=== PATIENT | female | born 1965 | race Caucasian/White ===

== ENCOUNTER 2020-02-14 02:17 | Emergency (ER) | payer BC, SELFPAY ==
[2020-02-14 02:17] VITALS: BP 160/78; PULSE 90; RESP 18; TEMP 36.4; O2SAT 95; BMI 27.4
--- NOTE | 2020-02-14 02:56 | W.ED.CHESTPA ---
Documented by User: RADHA Elmore 02/14/20 17:53 HPI - Chest Pain General: Chief Complaint: Recheck/Abnormal Lab/Rx Stated Complaint: HYPERTENSION Time Seen by Provider: 02/14/20 02:20 Source: patient Limitations: no limitations History of Present Illness: HPI narrative: Patient is a 54-year-old female who presents to ED today with several complaints. She tells me that she is concerned about the symptoms she is having and whether they could be indicative of a heart blockage . She tells me she has been having pain in her chest over the past month. She describes the pain as substernal and constant in nature. She does tell me she has a history of acid reflux and does not know if the pain could be related to that. She is complaining of cold sweats at night. She states she has pain and tingling intermittently in her left arm however has had a carpal tunnel surgery so is not sure if that is related. She also takes gabapentin and when asked why she states because of the numbness and tingling in her arm. Reports some pain to left shoulder but also states she has recently lifted something heavy and doesn't know if she pulled something. She tells me she has been having palpitations and feelings of rapid heartbeats. Patient has been seen by her PCP Gail Michele for this and she is scheduled for a stress test on March 11. Patient tells me she is also been having problems with hypertension. She does not seem to find a correlation with worsening symptoms with exertion. She is not having any shortness of breath with lying down. She has not noticed any swelling to her lower extremities. Denies fever/chills. Denies a cough. MD complaint: chest pain Onset (ago): month(s) Timing of current episode: constant Prior episodes: Yes Onset: during rest Pain location: substernal Pain radiation: left arm Severity: mild Relieving factors: nothing Exacerbating factors: nothing Associated symptoms: Reports palpitations; Deny abdominal pain, dyspnea, fever(s), nausea, syncope or vomiting Review of Systems Const: Denies: fever, chills, body aches, change in appetite, change in weight or fatigue Eyes: Denies: change in vision, blurry vision, blind spots or photophobia ENMT: Denies: throat pain, enlarged tonsils or painful swallowing Card: Reports: chest pain and palpitations; Denies: irregular heart rhythm, edema, swelling of feet/ankles, lightheadedness, syncope, pre-syncope, shortness of breath on exertion, shortness of breath when lying down, leg pain with exertion or bluish discoloration of hands/feet Resp: Denies: shortness of breath, productive cough, non-productive cough, pain on inspiration, change in phlegm color, coughing up blood or chest congestion GI: Denies: abdominal pain, nausea or vomiting : Denies: flank pain, difficulty urinating, painful urination, urinary frequency, urinary urgency or urinary hesitancy Musc: Denies: neck pain or back pain Skin/Breast: Denies: rash Neuro: Reports: numbness in extremities (intermittent; L arm-seems to be chronic) PFSH ED PFSH: Medical History (Updated 02/14/20 @ 03:57 by Hussein Chaudhary DO) Carpal tunnel syndrome Social History Smoking and tobacco status: never smoked Physical Exam Const: COMMON NORMALS: no apparent distress, average body habitus, oriented x3, no limitations, healthy appearing, alert and well nourished HENMT: COMMON NORMALS: normocephalic and head/scalp atraumatic HEAD & SCALP: normocephalic and atraumatic Neck/C-Spine: COMMON NORMALS: full ROM and no lymphadenopathy Chest: COMMONS NORMALS: inspection of chest normal and palpation of chest normal Resp: COMMON NORMALS: normal respiratory effort and clear to auscultation bilaterally AUSCULTATION: clear to auscultation bilaterally Cardio: COMMON NORMALS: regular rate and regular rhythm RATE: regular rate RHYTHM: regular rhythm GI: COMMON NORMALS: normal to inspection, nondistended, normoactive bowel sounds, soft to palpation, non-tender, no hepatosplenomegaly and no masses PALPATION: Yes soft and Yes no hepatosplenomegaly : COMMON NORMALS: Yes no CVA tenderness BLADDER/KIDNEY EXAM: Yes no CVA tenderness Back/Pelvis: COMMON NORMALS: no CVA tenderness Neuro: COMMON NORMALS: oriented x3 SENSORIUM/ORIENTATION: Yes alert Skin: COMMON NORMALS: no rashes or lesions noted GENERAL SKIN EXAM: no rashes or lesions noted Course Vital Signs: Vital signs: Vital Signs Temperature 98.3 F 02/14/20 04:33 Pulse Rate 84 02/14/20 04:33 Respiratory Rate 16 02/14/20 04:33 Blood Pressure 120/67 02/14/20 04:33 Pulse Oximetry 98 02/14/20 04:33 MDM - Chest Pain Lab Data: Labs: Lab Results 02/14/20 02/14/20 02/14/20 Range/Units 03:10 03:15 03:15 WBC 6.5 (4.0-10.0) 10^3/ uL RBC 4.46 (4.1-5.3) 10^6/u L Hgb 13.8 (11.5-15.3) g/dL Hct 42.0 (37.0-47.0) % MCV 94.2 (81-99) fL MCH 30.9 (28.0-34.0) pg MCHC 32.9 (30.0-36.0) g/dL RDW 12.6 (12.1-15.1) % Plt Count 274 (130-400) 10^3/c mm MPV 9.9 (7.4-10.4) fL Neut % (Auto) 53.6 % Lymph % (Auto) 36.7 % [place] % (Auto) 5.8 % Eos % (Auto) 3.2 % Baso % (Auto) 0.5 % Neut # (Auto) 3.5 (1.8-7.7) 10^3/u L Lymph # (Auto) 2.4 (0.8-4.8) 10^3/u L [place] # (Auto) 0.4 (0.2-0.9) 10^3/u L Eos # (Auto) 0.2 (0.0-0.8) 10^3/u L Baso # (Auto) 0.0 (0.0-0.1) 10^3/u L Nucleated RBC % (a uto) 0 % Nucleated RBCs # 0.0 /100WBC Sodium 143 (136-145) mmol/L Potassium 4.0 (3.5-5.1) mmol/L Chloride 102 (98-107) mmol/L Carbon Dioxide 32 H (22-29) mmol/L Anion Gap 13.0 (5-19) BUN 14 (6-20) mg/dL Creatinine 0.6 (0.5-0.9) mg/dL GFR Calculation 105.0 (90-130) mL/min Glucose 98 (65-115) mg/dL Calculated Osmolal ity 292 (285-295) mOsm/k g Calcium 9.8 (8.5-10.5) mg/dL Total Bilirubin 0.2 (0.15-1.2) mg/dL AST 18 (0-32) U/L ALT 19 (0-33) U/L Alkaline Phosphata se 38 (35-105) IU/L Troponin T Baselin e (0-10) ng/mL Total Protein 7.5 (6.6-8.7) g/dL Albumin 4.1 (3.5-5.2) g/dL Globulin 3.4 (1.3-4.6) g/dL TSH 9.18 H (0.27-4.20) uIU/ mL Urine Color Yellow (Yellow) Urine Appearance Clear (CLEAR) Urine pH 7 (5-7) Ur Specific Gravit y 1.010 (1.005-1.030) Urine Protein Neg (Negative) Urine Glucose (UA) Norm (Normal) Urine Ketones Negative (Negative) Urine Blood Neg (Negative) Urine Nitrate Negative (Negative) Urine Bilirubin Neg (NEGATIVE) Urine Urobilinogen Norm (Negative) mg/dL Ur Leukocyte Kemi ase Negative (Negative) 02/14/20 Range/Units 03:15 WBC (4.0-10.0) 10^3/ uL RBC (4.1-5.3) 10^6/u L Hgb (11.5-15.3) g/dL Hct (37.0-47.0) % MCV (81-99) fL MCH (28.0-34.0) pg MCHC (30.0-36.0) g/dL RDW (12.1-15.1) % Plt Count (130-400) 10^3/c mm MPV (7.4-10.4) fL Neut % (Auto) % Lymph % (Auto) % [place] % (Auto) % Eos % (Auto) % Baso % (Auto) % Neut # (Auto) (1.8-7.7) 10^3/u L Lymph # (Auto) (0.8-4.8) 10^3/u L [place] # (Auto) (0.2-0.9) 10^3/u L Eos # (Auto) (0.0-0.8) 10^3/u L Baso # (Auto) (0.0-0.1) 10^3/u L Nucleated RBC % (a uto) % Nucleated RBCs # /100WBC Sodium (136-145) mmol/L Potassium (3.5-5.1) mmol/L Chloride (98-107) mmol/L Carbon Dioxide (22-29) mmol/L Anion Gap (5-19) BUN (6-20) mg/dL Creatinine (0.5-0.9) mg/dL GFR Calculation (90-130) mL/min Glucose (65-115) mg/dL Calculated Osmolal ity (285-295) mOsm/k g Calcium (8.5-10.5) mg/dL Total Bilirubin (0.15-1.2) mg/dL AST (0-32) U/L ALT (0-33) U/L Alkaline Phosphata se (35-105) IU/L Troponin T Baselin e 8 (0-10) ng/mL Total Protein (6.6-8.7) g/dL Albumin (3.5-5.2) g/dL Globulin (1.3-4.6) g/dL TSH (0.27-4.20) uIU/ mL Urine Color (Yellow) Urine Appearance (CLEAR) Urine pH (5-7) Ur Specific Gravit y (1.005-1.030) Urine Protein (Negative) Urine Glucose (UA) (Normal) Urine Ketones (Negative) Urine Blood (Negative) Urine Nitrate (Negative) Urine Bilirubin (NEGATIVE) Urine Urobilinogen (Negative) mg/dL Ur Leukocyte Kemi ase (Negative) Discharge Plan Discharge Patient Disposition: Home, Self-Care Clinical Impression: Atypical chest pain Condition: Stable Prescriptions: No Action Aspirin Low Dose 81 mg Tablet,Delayed Release (Dr/Ec) 81 mg PO DAILY RF: 0 levothyroxine 88 mcg Tablet 88 mcg PO DAILY RF: 0 trazodone 150 mg Tablet 150 mg PO DAILY RF: 0 gabapentin 300 mg Capsule 300 mg PO BID RF: 0 Discharge Diet: Usual diet Discharge Activity: Limit activity as instructed Activity Restrictions/Additional Instructions: Keep stress test as scheduled. Discharge Date/Time: 02/14/20 04:45 Sign Out Sign Out Data: Patient Sign Out occurred on 02/14/20 at 03:21. Patient's care was discussed, and care was transferred from to Hussein Chaudhary DO. Coding Level of Care Code ED Landscape Architecture Teacher for Chg Fwd Exam Comprehensive Documented by User: Hussein Chaudhary DO 02/14/20 21:10 HPI - Chest Pain General: Chief Complaint: Recheck/Abnormal Lab/Rx Stated Complaint: HYPERTENSION Time Seen by Provider: 02/14/20 02:20 PFS ED PFSH: Medical History (Updated 02/14/20 @ 03:57 by Hussein Chaudhary DO) Carpal tunnel syndrome Social History Smoking and tobacco status: never smoked Course ED course: Patient has negative troponin will go and discharge home. She has had this for several weeks and she has a stress test scheduled are ready recommend that she keep that stress test appointment as planned. Aspirin daily return to the ER if has worsening or changes symptoms Vital Signs: Vital signs: Vital Signs Temperature 98.3 F 02/14/20 04:33 Pulse Rate 84 02/14/20 04:33 Respiratory Rate 16 02/14/20 04:33 Blood Pressure 120/67 02/14/20 04:33 Pulse Oximetry 98 02/14/20 04:33 MDM - Chest Pain Lab Data: Labs: Lab Results 02/14/20 02/14/20 02/14/20 Range/Units 03:10 03:15 03:15 WBC 6.5 (4.0-10.0) 10^3/ uL RBC 4.46 (4.1-5.3) 10^6/u L Hgb 13.8 (11.5-15.3) g/dL Hct 42.0 (37.0-47.0) % MCV 94.2 (81-99) fL MCH 30.9 (28.0-34.0) pg MCHC 32.9 (30.0-36.0) g/dL RDW 12.6 (12.1-15.1) % Plt Count 274 (130-400) 10^3/c mm MPV 9.9 (7.4-10.4) fL Neut % (Auto) 53.6 % Lymph % (Auto) 36.7 % [place] % (Auto) 5.8 % Eos % (Auto) 3.2 % Baso % (Auto) 0.5 % Neut # (Auto) 3.5 (1.8-7.7) 10^3/u L Lymph # (Auto) 2.4 (0.8-4.8) 10^3/u L [place] # (Auto) 0.4 (0.2-0.9) 10^3/u L Eos # (Auto) 0.2 (0.0-0.8) 10^3/u L Baso # (Auto) 0.0 (0.0-0.1) 10^3/u L Nucleated RBC % (a uto) 0 % Nucleated RBCs # 0.0 /100WBC Sodium 143 (136-145) mmol/L Potassium 4.0 (3.5-5.1) mmol/L Chloride 102 (98-107) mmol/L Carbon Dioxide 32 H (22-29) mmol/L Anion Gap 13.0 (5-19) BUN 14 (6-20) mg/dL Creatinine 0.6 (0.5-0.9) mg/dL GFR Calculation 105.0 (90-130) mL/min Glucose 98 (65-115) mg/dL Calculated Osmolal ity 292 (285-295) mOsm/k g Calcium 9.8 (8.5-10.5) mg/dL Total Bilirubin 0.2 (0.15-1.2) mg/dL AST 18 (0-32) U/L ALT 19 (0-33) U/L Alkaline Phosphata se 38 (35-105) IU/L Troponin T Baselin e (0-10) ng/mL Total Protein 7.5 (6.6-8.7) g/dL Albumin 4.1 (3.5-5.2) g/dL Globulin 3.4 (1.3-4.6) g/dL TSH 9.18 H (0.27-4.20) uIU/ mL Urine Color Yellow (Yellow) Urine Appearance Clear (CLEAR) Urine pH 7 (5-7) Ur Specific Gravit y 1.010 (1.005-1.030) Urine Protein Neg (Negative) Urine Glucose (UA) Norm (Normal) Urine Ketones Negative (Negative) Urine Blood Neg (Negative) Urine Nitrate Negative (Negative) Urine Bilirubin Neg (NEGATIVE) Urine Urobilinogen Norm (Negative) mg/dL Ur Leukocyte Kemi ase Negative (Negative) 02/14/20 Range/Units 03:15 WBC (4.0-10.0) 10^3/ uL RBC (4.1-5.3) 10^6/u L Hgb (11.5-15.3) g/dL Hct (37.0-47.0) % MCV (81-99) fL MCH (28.0-34.0) pg MCHC (30.0-36.0) g/dL RDW (12.1-15.1) % Plt Count (130-400) 10^3/c mm MPV (7.4-10.4) fL Neut % (Auto) % Lymph % (Auto) % [place] % (Auto) % Eos % (Auto) % Baso % (Auto) % Neut # (Auto) (1.8-7.7) 10^3/u L Lymph # (Auto) (0.8-4.8) 10^3/u L [place] # (Auto) (0.2-0.9) 10^3/u L Eos # (Auto) (0.0-0.8) 10^3/u L Baso # (Auto) (0.0-0.1) 10^3/u L Nucleated RBC % (a uto) % Nucleated RBCs # /100WBC Sodium (136-145) mmol/L Potassium (3.5-5.1) mmol/L Chloride (98-107) mmol/L Carbon Dioxide (22-29) mmol/L Anion Gap (5-19) BUN (6-20) mg/dL Creatinine (0.5-0.9) mg/dL GFR Calculation (90-130) mL/min Glucose (65-115) mg/dL Calculated Osmolal ity (285-295) mOsm/k g Calcium (8.5-10.5) mg/dL Total Bilirubin (0.15-1.2) mg/dL AST (0-32) U/L ALT (0-33) U/L Alkaline Phosphata se (35-105) IU/L Troponin T Baselin e 8 (0-10) ng/mL Total Protein (6.6-8.7) g/dL Albumin (3.5-5.2) g/dL Globulin (1.3-4.6) g/dL TSH (0.27-4.20) uIU/ mL Urine Color (Yellow) Urine Appearance (CLEAR) Urine pH (5-7) Ur Specific Gravit y (1.005-1.030) Urine Protein (Negative) Urine Glucose (UA) (Normal) Urine Ketones (Negative) Urine Blood (Negative) Urine Nitrate (Negative) Urine Bilirubin (NEGATIVE) Urine Urobilinogen (Negative) mg/dL Ur Leukocyte Kemi ase (Negative) Discharge Plan Discharge Patient Disposition: Home, Self-Care Clinical Impression: Atypical chest pain Condition: Stable Prescriptions: No Action Aspirin Low Dose 81 mg Tablet,Delayed Release (Dr/Ec) 81 mg PO DAILY RF: 0 levothyroxine 88 mcg Tablet 88 mcg PO DAILY RF: 0 trazodone 150 mg Tablet 150 mg PO DAILY RF: 0 gabapentin 300 mg Capsule 300 mg PO BID RF: 0 Discharge Diet: Usual diet Discharge Activity: Limit activity as instructed Activity Restrictions/Additional Instructions: Keep stress test as scheduled. Discharge Date/Time: 02/14/20 04:45 Sign Out Sign Out Data: Patient Sign Out occurred on 02/14/20 at 03:21. Patient's care was discussed, and care was transferred from to Hussein Chaudhary DO. Coding Level of Care Code ED Landscape Architecture Teacher for Everg Fwd Exam Comprehensive
--- NOTE | 2020-02-14 02:58 | XR_ITS ---
WS: [id number] XR chest 1V portable [id number] REASON FOR EXAM: cough/congestion FINDINGS: The heart and mediastinal interfaces normal. The lung mo[place] are well aerated much improved since previous exam January 24, 2012. There is no pneumonia, pleural effusion, pulmonary edema, pneumothorax, or mass effect. The hilum and apices normal. No osseous abnormalities. XR/XR chest 1V portable [id number] IMPRESSION: Negative chest for acute findings.
[2020-02-14 03:21] LABS: Add Urine Microscopic? NO
[2020-02-14 03:29] LABS: Bilirubin Urine Neg (NEGATIVE); Blood Urine Neg (Negative); Glucose Urine UA Norm (Normal); Ketones Urine Negative (Negative); Leukocyte Esterase Urine Negative (Negative); Nitrate Urine Negative (Negative); Protein Urine Neg (Negative); Urine Appearance Clear (CLEAR); Urine Color Yellow (Yellow); Urobilinogen Urine Norm (Negative); pH Urine 7 (5-7)
[2020-02-14 03:41] LABS: Troponin(5th) Baseline 8 ng/mL (0-10)
[2020-02-14 03:44] LABS: Basophils % 0.5 %; Eosinophils # 0.2 10^3/uL (0.0-0.8); Eosinophils % 3.2 %; Hemoglobin 13.8 g/dL (11.5-15.3); Lymphocytes # 2.4 10^3/uL (0.8-4.8); Lymphocytes % 36.7 %; Mean Corpuscular HGB Conc 32.9 g/dL (30.0-36.0); Mean Corpuscular Hemoglobin 30.9 pg (28.0-34.0); Mean Corpuscular Volume 94.2 fL (81-99); Mean Platelet Volume 9.9 fL (7.4-10.4); Monocytes # 0.4 10^3/uL (0.2-0.9); Monocytes % 5.8 %; Neutrophils # 3.5 10^3/uL (1.8-7.7); Neutrophils % 53.6 %; Nucleated Red Blood Cells % 0 %; Platelet Count 274 10^3/cmm (130-400); Red Blood Count 4.46 10^6/uL (4.1-5.3); Red Cell Distribution Width 12.6 % (12.1-15.1); White Blood Count 6.5 10^3/uL (4.0-10.0)
[2020-02-14 03:51] LABS: Alanine Aminotransferase 19 U/L (0-33); Albumin Level 4.1 g/dL (3.5-5.2); Alkaline Phosphatase 38 IU/L (35-105); Aspartate Amino Transferase 18 U/L (0-32); Blood Urea Nitrogen 14 mg/dL (6-20); Calcium 9.8 mg/dL (8.5-10.5); Carbon Dioxide 32 mmol/L (22-29); Chloride 102 mmol/L (98-107); Globulin 3.4 g/dL (1.3-4.6); Glucose 98 mg/dL (65-115); Osmolality Calculated 292 mOsm/kg (285-295); Sodium 143 mmol/L (136-145); Thyroid Stimulating Hormone 9.18 uIU/mL (0.27-4.20); Total Bilirubin 0.2 mg/dL (0.15-1.2); Total Protein 7.5 g/dL (6.6-8.7)
[2020-02-14 04:33] VITALS: BP 120/67; PULSE 84; RESP 16; TEMP 36.8; O2SAT 98
--- NOTE | 2020-02-14 08:59 | ECG_ITS ---
Measurements Intervals [place] Rate: 78 P: 56 IA: 174 QRS: 5 QRSD: 98 T: 40 QT: 373 QTc: 425 SINUS RHYTHM SEPTAL MYOCARDIAL INFARCTION , OF INDETERMINATE AGE [40+ ms Q WAVE IN V1/V2] No previous ECG available for comparison Electronically Signed On 02-15-2020 12:48:46 CDT by Wali Pickering [email or web address]
== END 2020-02-14 04:45 | disposition home or self-care (01) ==
PROVIDERS: Physician Assistant; Emergency Provider Family Medicine
DX: R07.89 Other chest pain (principal)
CPT/HCPCS: 12345; 36415; 71045; 80053; 81003; 84443; 84484; 85025; 93005; 93010; 99282; 99283; A9270

== ENCOUNTER 2020-11-06 09:54 | Outpatient (CLI) | payer BC, SELFPAY ==
--- NOTE | 2020-11-06 10:01 | MM_ITS ---
WS: [id number] BILATERAL DIGITAL SCREENING MAMMOGRAPHY WITH CAD CLINICAL INFORMATION: SCREENING HISTORY: Screening mammogram. No current complaints. COMPARISON: October 09, 2019 TECHNIQUE: Bilateral CC and MLO views. FINDINGS: The breasts are composed of heterogeneous fibroglandular density tissue, which can limit the detectio n of small underlying mass lesions. No suspicious mass, asymmetry, calcifications, or architectural d istortion. No evidence of malignancy. MM/[place] [id number] IMPRESSION: BI-RADS: 1-Negative FOLLOW UP: 1 Year Follow-up Recommend return to annual screening mammography.
== END 2020-11-06 09:55 | disposition home or self-care (01) ==
LOC: RADSHAW 09:59
PROVIDERS: PCP Nurse Practitioner Family; Visit Provider Nurse Practitioner Family
DX: Z12.31 Encounter for screening mammogram for malignant neoplasm of breast (principal)
CPT/HCPCS: 77067

== ENCOUNTER 2021-01-29 07:49 | Outpatient (CLI) | payer BC, SELFPAY ==
--- NOTE | 2021-01-29 08:03 | CT_ITS ---
WS: [id number] CT NECK TECHNIQUE: Contrast-enhanced CT of the neck with coronal and sagittal reformatted images. CLINICAL INFORMATION: CHRONIC SINUSITIS, PAIN IN THROAT COMPARISON: None. DLP: 2505.[address] scans at [facility] use at least one of these dose optimization techniques: automat ed exposure control; mA and/or kV adjustment per patient size (includes targeted exams where dose is matched to clinical indication); or iterative reconstruction. FINDINGS: Parotid Glands are normal in appearance. Normal submandibular glands. Tongue base is normal in appear ance. Normal posterior nasopharynx. Normal parapharyngeal fat. No evidence of supraglottic or glottic mass. Normal subglottic airway. Normal thyroid gland. Lung apices are well aerated. Mastoid air cells are well aerated. Sinusitis with fluid in the right m axillary sinus. Paranasal sinuses are well aerated. Partially visualized intracranial contents unrema rkable. No cervical lymphadenopathy. CT/CT neck w con* [id number] IMPRESSION: 1. Normal salivary glands. 2. No cervical lymphadenopathy. 3. No evidence of supraglottic or glottic mass. Subglottic airway is patent. 4. Right maxillary sinusitis with air-fluid level. Paranasal sinuses and masto id air cells are otherwise well aerated. 5. No other significant findings.
[2021-01-29] MEDS: iohexol 300 mg/mL 100 mL Btl IV (08:40)
== END 2021-01-29 07:50 | disposition home or self-care (01) ==
PROVIDERS: PCP Nurse Practitioner Family; Visit Provider Otolaryngology
DX: J32.8 Other chronic sinusitis (principal); R07.0 Pain in throat
CPT/HCPCS: 70491; Q9967

== ENCOUNTER → 2022-01-26 10:05 | Outpatient (BNVA) | payer BC, SELFPAY | PROVIDERS: PCP Nurse Practitioner Family; Referring Provider Nurse Practitioner Family; Visit Provider Podiatrist Foot & Ankle Surgery | DX: M79.671 Pain in right foot (principal); M79.672 Pain in left foot | CPT/HCPCS: 73630 ==

== ENCOUNTER 2022-05-13 08:27 | Outpatient (CLI) | payer BC, SELFPAY ==
--- NOTE | 2022-05-13 08:33 | MM_ITS ---
WS: [id number] BILATERAL SCREENING DIGITAL BREAST TOMOSYNTHESIS MAMMOGRAM WITH CAD HISTORY: SCREEN COMPARISON: 11/06/2020 and 10/09/2019 Bilateral CC and MLO views with tomosynthesis and synthetic mammography submitted. Computer aided det ection analyzed. Breast composition: There are scattered areas of fibroglandular density. No suspicious masses, microc alcifications or architectural distortion. MM/[place] [id number] IMPRESSION: BI-RADS: 1-Negative FOLLOW UP: 1 Year Follow-up
== END 2022-05-13 08:28 | disposition home or self-care (01) ==
LOC: RAD 08:28
PROVIDERS: PCP Nurse Practitioner Family; Visit Provider Nurse Practitioner Family
DX: Z12.31 Encounter for screening mammogram for malignant neoplasm of breast (principal)
CPT/HCPCS: 77063; 77067

== ENCOUNTER 2023-06-10 15:33 | Outpatient (CLI) | payer BC, SELFPAY ==
--- NOTE | 2023-06-10 15:56 | MM_ITS ---
WS: [id number] BILATERAL 3D TOMOSYNTHESIS DIGITAL SCREENING MAMMOGRAPHY WITH CAD CLINICAL INFORMATION: SCREENING HISTORY: Screening mammogram. No current complaints. COMPARISON: 2021 TECHNIQUE: Bilateral CC and MLO views. FINDINGS: Scattered fibroglandular densities bilaterally. No suspicious focal mass, asymmetry, calcifications, or architectural distortion. No evidence of malignancy. MM/[place] [id number] IMPRESSION: BI-RADS: 1-Negative FOLLOW UP: 1 Year Follow-up Recommend return to annual screening mammography.
== END 2023-06-10 15:34 | disposition home or self-care (01) ==
LOC: RAD 15:35
PROVIDERS: PCP Nurse Practitioner Family; Visit Provider Nurse Practitioner Family
DX: Z12.31 Encounter for screening mammogram for malignant neoplasm of breast (principal)
CPT/HCPCS: 77063; 77067

== ENCOUNTER 2024-09-27 11:57 | Outpatient (CLI) | payer BC, SELFPAY ==
--- NOTE | 2024-09-27 | ECG_ITS ---
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 Interpretive Statements EXERCISE MIBI EXERCISE DATA: The patient was exercised by García protocol. Baseline heart rate was 81 beats per minute. Baseline blood pressure was 153/98 millimeters of mercury. Maximal predicted heart rate was 163 beats per minute. Maximum heart rate achieved was 142, which was 87% of the maximum predicted heart rate. Maximum blood pressure was 198/101millimeters of mercury. Total exercise time was 7minutes. Maximum METs achieved was 10.2. The reason for ending the test was completion of protocol. The patient complained of chest pain during the stress test, which then resolved at the end of the test. ELECTROCARDIOGRAM: BASELINE: Showed sinus rhythm, normal axis, septal infarct . EXERCISE: At the peak exercise level, [] No significant ST-T changes suggestive of ischemia noted. [] RECOVERY: During the recovery period, heart rate dropped appropriately. No significant ST-T changes in the recovery suggestive of ischemia noted. [] CONCLUSION: 1. Exercise capacity is fair. 2. Heart rate response was appropriate. 3. Blood pressure response was appropriate 4. Symptoms not suggestive of ischemia. 5. Stress test not indicative of ischemia. Electronically Signed On 11-01-2024 18:52:37 DATABASE ADMIN by Nghia Glynn M.D. [email or web address]
[2024-09-27 12:36] VITALS: BP 160/98; PULSE 98
== END 2024-09-27 11:58 | disposition home or self-care (01) ==
PROVIDERS: PCP Nurse Practitioner Family; Visit Provider Nurse Practitioner Family
DX: R07.9 Chest pain, unspecified (principal); R06.02 Shortness of breath
CPT/HCPCS: 93017

== ENCOUNTER 2024-11-21 10:37 | Outpatient (CLI) | payer BC, SELFPAY ==
--- NOTE | 2024-11-21 10:52 | CT_ITS ---
WS: [id number] CT PARANASAL SINUSES HISTORY: CHRONIC MAXILLARY SINUSITIS TECHNIQUE: Contiguous 2.5 mm axial images obtained through the sinuses. Images are reconstructed in s agittal and coronal planes. All CT scans at [facility] use at least one of these dose optimiz ation techniques: automated exposure control; mA and/or kV adjustment per patient size (includes targ eted exams where dose is matched to clinical indication); or iterative reconstruction. DLP: 372.74 mGy.cm COMPARISON: 10/27/2007 Frontal sinuses: Normal. Sphenoid sinus: Normal. Ethmoid sinuses: No significant ethmoid air cell disease. Maxillary sinus: Small mucous retention cyst floor of the RIGHT maxillary sinus. No air-fluid levels or bone destruction. Ostiomeatal unit: Widely patent. No obstruction of the ostiomeatal units. No significant deviation of the nasal septum. No significant spurring. Orbits and globes are normal. CT/CT sinus wo con* [id number] IMPRESSION: 1. No air-fluid levels or acute sinusitis. 2. Small mucous retention cyst in the floor of the RIGHT maxillary sinus. 3. Widely patent ostiomeatal units.
== END 2024-11-21 10:38 | disposition home or self-care (01) ==
PROVIDERS: PCP Nurse Practitioner Family; Visit Provider Specialist
DX: J32.0 Chronic maxillary sinusitis (principal); J34.1 Cyst and mucocele of nose and nasal sinus
CPT/HCPCS: 70486

== ENCOUNTER → 2024-12-22 08:16 | Outpatient (BNVA) | payer BC, SELFPAY | PROVIDERS: PCP Nurse Practitioner Family; Visit Provider Obstetrics & Gynecology | DX: R10.2 Pelvic and perineal pain (principal); Z98.890 Other specified postprocedural states | CPT/HCPCS: 76830 ==

== ENCOUNTER 2025-01-02 19:55 | Emergency (ER) | payer BC, SELFPAY ==
--- NOTE | 2025-01-02 19:58 | XRR_ITS ---
PROCEDURE INFORMATION: Exam: XR Chest Exam date and time: 01/02/2025 8:15 PM Age: 59 years old Clinical indication: Pain; Chest pressure; Additional info: Cp TECHNIQUE: Imaging protocol: Radiologic exam of the chest. Views: 1 view. COMPARISON: CR XR chest 1V portable [id number] 02/14/2020 3:39 AM FINDINGS: Lungs: Unremarkable. No consolidation. Pleural spaces: Unremarkable. No pleural effusion. No pneumothorax. Heart/Mediastinum: Unremarkable. No cardiomegaly. Bones/joints: Unremarkable. XR/XR chest 1V portable [id number] IMPRESSION: No acute findings.
--- NOTE | 2025-01-02 20:02 | ECG_ITS ---
[facility] Date: 2025[facility]01-02 Pat Name: Maryanne Vicente Department: Room: Gender: Female Pc Support Specialist: : 1965 Requested By: Elbert Green Order Number: [id number] Dom MD: Nghia Glynn M.D. Measurements Intervals [place] Rate: 83 P: 45 ME: 154 QRS: -22 QRSD: 99 T: 21 QT: 339 QTc: 399 Interpretive Statements SINUS RHYTHM MINIMAL VOLTAGE CRITERIA FOR LVH, CONSIDER NORMAL VARIANT [MEETS CRITERIA IN ONE OF: R(aVL), S(V1), R(V5), R(V5/V6)+S(V1)] ANTEROSEPTAL MYOCARDIAL INFARCTION , OF INDETERMINATE AGE [40+ ms Q WAVE IN V1-V4] Compared to ECG 02/14/2020 03:09:58 No significant changes Electronically Signed On 01-04-2025 22:01:55 S[employer] ARCHITECT by Nghia Glynn M.D. [email or web address] [id number]
[2025-01-02 20:06] VITALS: BP 174/102; PULSE 90; TEMP 36.5; O2SAT 97; BMI 42.0
[2025-01-02 20:09] VITALS: BP 183/118; PULSE 88; RESP 16; O2SAT 97
--- NOTE | 2025-01-02 20:21 | W.ED.CHESTPA ---
HPI - Chest Pain General: Chief Complaint: Chest Pain Stated Complaint: Chest pains Time Seen by Provider: 01/02/25 20:17 History of Present Illness: Patient presents to the ER complaining of intermittent chest pain and high blood pressure all day long since about noon. The chest pain comes and goes sharp stabbing in nature sometimes last 5 seconds sometimes last 20 seconds. There is nothing that brings it on or makes it go away. Patient has never had this before. She has no cardiac history. Patient has a history of mild elevation of blood pressure at the doctor's office but has never required medicine. She said she took her blood pressure multiple times throughout the day and it never was less than 160/100. Patient denies any shortness of breath nausea vomiting diaphoresis Related Data Home Medications ?Medication ?Instructions ?Recorded ?Confirmed aspirin 81 mg tablet,delayed 81 mg PO DAILY 02/14/20 11/14/24 release ([facility] Low Dose Aspirin) gabapentin 300 mg capsule 300 mg PO BID 02/14/20 11/14/24 duloxetine 60 mg capsule,delayed 60 mg PO BID 01/26/22 11/14/24 release amitriptyline 25 mg tablet 25 mg PO DAILY 10/19/24 11/14/24 buspirone 10 mg tablet 10 mg PO BID 10/19/24 11/14/24 esomeprazole magnesium 40 mg 40 mg PO DAILY 10/19/24 11/14/24 capsule,delayed release levothyroxine 88 mcg tablet 100 mcg PO DAILY 10/19/24 11/14/24 rosuvastatin 10 mg tablet 10 mg PO DAILY 10/19/24 11/14/24 Previous Rx's ?Medication ?Instructions ?Recorded clobetasol 0.05 % topical ointment 1 applic topical BID #60 grams 10/19/24 bacitracin zinc 500 unit/gram 1 applic topical TID #14.2 grams 10/23/24 topical ointment nystatin-triamcinolone 100,000 1 applic topical BID #60 grams 10/23/24 unit/g-0.1 % topical cream Allergies Allergy/AdvReac Type Severity Reaction Status Date / Time No Known Allergies Allergy Verified 01/02/25 20:09 Review of Systems General: Reports: 10 or more systems reviewed and unremarkable except in HPI and below PFSH ED PFSH: Medical History Carpal tunnel syndrome Family History Denies family history of Colon cancer Ovarian cancer Diabetes Heart disease Breast cancer Hypertension Uterine cancer Thyroid disease Stroke Social History Smoking and tobacco/nicotine status: never used tobacco/nicotine Physical Exam Const: COMMON NORMALS: no acute distress, average body habitus, patient oriented x3, no limitations, healthy appearing, alert and well nourished HENMT: COMMON NORMALS: normocephalic, atraumatic, hearing grossly normal bilaterally, external ears normal, Normal external nose present and moist oral mucous membranes HEAD & SCALP: normocephalic and atraumatic NOSE: Normal external nose present EXTERNAL EAR: Yes external ears normal Neck/C-Spine: COMMON NORMALS: full ROM, no lymphadenopathy, supple, no meningeal signs, no JVD and Thyroid normal THYROID: Thyroid normal Chest: COMMONS NORMALS: normal inspection of the chest and normal palpation of entire chest wall Resp: COMMON NORMALS: normal respiratory effort, No retractions, No use of accessory muscles and clear to auscultation bilaterally AUSCULTATION: clear to auscultation bilaterally Cardio: COMMON NORMALS: no JVD, regular rate, regular rhythm, S1 normal heart sound present, S2 normal heart sound present, No gallops present (Cardio), No clicks present (Cardio), No murmurs present (Cardio) and No rub (Cardio) RATE: regular rate RHYTHM: regular rhythm HEART SOUNDS: S1 normal heart sound present and S2 normal heart sound present GI: COMMON NORMALS: Normal to inspection, nondistended, normoactive bowel sounds present, Soft to palpation, non-tender, No hepatosplenomegaly present and no masses PALPATION: Yes Soft to palpation and Yes No hepatosplenomegaly present Neuro: COMMON NORMALS: patient oriented x3 SENSORIUM/ORIENTATION: Yes alert MENINGEAL SIGNS: Yes no meningeal signs Course Vital Signs: Vital signs: Vital Signs Temperature 97.7 F 01/02/25 20:06 Pulse Rate 88 01/02/25 20:09 Respiratory Rate 16 01/02/25 20:09 Blood Pressure 183/118 01/02/25 20:09 Pulse Oximetry 97 01/02/25 20:09 Oxygen Delivery Me thod Room Air 01/02/25 20:06 MDM - Chest Pain Medical Decision Making Chest x-ray is negative, lab work was negative as well as serial troponins and serial EKGs, patient was given clonidine 0.1 mg to help with her blood pressure. These results was discussed with the patient. Patient be discharged home and is to follow-up with her PCP within the next week and keep a blood pressure log. Medical Records I reviewed the patient's medical records. Lab Data I reviewed the patient's lab results. 01/02/25 20:12 01/02/25 20:12 Radiology Impressions Chest X-Ray 01/02/25 19:58 IMPRESSION: No acute findings. Laboratory Results WBC 8.17 10^3/uL (3.29-11.43) 01/02/25 20:12 RBC 4.57 10^6/uL (3.85-5.65) 01/02/25 20:12 Hgb 13.50 g/dL (11.27-16.99) 01/02/25 20:12 Hct 40.4 % (36-47) 01/02/25 20:12 MCV 88.4 fl (85-98) 01/02/25 20:12 MCH 29.5 pg (27-33) 01/02/25 20:12 MCHC 33.4 g/dL (30-55) 01/02/25 20:12 RDW 13.4 % (12.1-15.1) 01/02/25 20:12 Plt Count 268 10^3/cmm (157-399) 01/02/25 20:12 MPV 9.3 fL (7.4-10.4) 01/02/25 20:12 Neut % (Auto) 53.3 % 01/02/25 20:12 Lymph % (Auto) 37.2 % 01/02/25 20:12 Mccone % (Auto) 5.4 % 01/02/25 20:12 Eos % (Auto) 3.4 % 01/02/25 20:12 Baso % (Auto) 0.5 % 01/02/25 20:12 Neut # (Auto) 4.35 10^3/uL (1.8-7.7) 01/02/25 20:12 Lymph # (Auto) 3.0 10^3/uL (0.8-4.8) 01/02/25 20:12 Mccone # (Auto) 0.4 10^3/uL (0.2-0.9) 01/02/25 20:12 Eos # (Auto) 0.3 10^3/uL (0.0-0.8) 01/02/25 20:12 Baso # (Auto) 0.0 10^3/uL (0.0-0.1) 01/02/25 20:12 Nucleated RBC % (auto) 0 % 01/02/25 20:12 Nucleated RBCs # 0.0 /100WBC 01/02/25 20:12 Sodium 137 mmol/L (136-145) 01/02/25 20:12 Potassium 4.2 mmol/L (3.5-5.1) 01/02/25 20:12 Chloride 100 mmol/L (98-107) 01/02/25 20:12 Carbon Dioxide 26 mmol/L (22-29) 01/02/25 20:12 Anion Gap 15.2 (5-19) 01/02/25 20:12 BUN 10 mg/dL (6-20) 01/02/25 20:12 Creatinine 0.6 mg/dL (0.5-0.9) 01/02/25 20:12 GFR Calculation 103.0 mL/min (90-130) 01/02/25 20:12 Glucose 113 mg/dL (65-115) 01/02/25 20:12 Calculated Osmolality 284 mOsm/kg (285-295) L 01/02/25 20:12 Calcium 9.3 mg/dL (8.5-10.5) 01/02/25 20:12 Total Bilirubin 0.3 mg/dL (0.15-1.2) 01/02/25 20:12 AST 25 U/L (0-32) 01/02/25 20:12 ALT 31 U/L (0-33) 01/02/25 20:12 Alkaline Phosphatase 75 U/L (35-105) 01/02/25 20:12 Troponin T Baseline 11 ng/L (0-10) H 01/02/25 20:12 Troponin T 120 Minute 11.23 ng/L (0-10) H 01/02/25 22:20 Delta Troponin T 0.23 ABS# (0-10) 01/02/25 22:20 Total Protein 6.7 g/dL (6.6-8.7) 01/02/25 20:12 Albumin 4.2 g/dL (3.5-5.2) 01/02/25 20:12 Globulin 2.5 g/dL (1.3-4.6) 01/02/25 20:12 Lipase 41 U/L (13-60) 01/02/25 20:12 All radiology interpretation(s) finalized by discharge Discharge Plan Discharge Patient Disposition: Home Clinical Impression: Chest pain Qualifiers: Chest pain type: unspecified Qualified Code(s): R07.9 - Chest pain, unspecified Hypertension Qualifiers: Hypertension type: unspecified Qualified Code(s): I10 - Essential (primary) hypertension Condition: Stable Prescriptions: No Action duloxetine 60 mg capsule,delayed release(DR/EC) 60 mg PO BID rosuvastatin 10 mg tablet 10 mg PO DAILY esomeprazole magnesium 40 mg capsule,delayed release(DR/EC) 40 mg PO DAILY amitriptyline 25 mg tablet 25 mg PO DAILY buspirone 10 mg tablet 10 mg PO BID clobetasol 0.05 % ointment 1 applic topical BID Qty: 60 1RF Rx Instructions: use twice daily for two weeks then transition to once nightly for a total of 12 weeks nystatin-triamcinolone 100,000-0.1 unit/g-% cream 1 applic topical BID Qty: 60 3RF bacitracin zinc 500 unit/gram ointment 1 applic topical TID Qty: 14.2 3RF [facility] Low Dose Aspirin 81 mg Tablet,Delayed Release (Dr/Ec) 81 mg PO DAILY gabapentin 300 mg Capsule 300 mg PO BID levothyroxine 88 mcg tablet 100 mcg PO DAILY Discharge Orders: Discharge ED (Routine); Ordered 01/02/25 Ordered By: Howie Villanueva Referrals: Gail Michele FNP [Primary Care Provider] - 1 week Patient Instructions: Chest Pain (ED), Hypertension (ED) Activity Restrictions/Additional Instructions: Your cardiac workup performed in ER did not reveal any acute cardiac cause of your chest pain. Your chest pain is felt to be noncardiac in nature. Your blood pressure was high during her stay in ER. Please keep a blood pressure log for recheck it at least 1 time daily and can take that to your family practice appointment within next 7 days for further evaluation and treatment. It may be at a you have developed high blood pressure and need to be on a blood pressure medicine. Print Language: Sammarinese Coding Level of Care Code ED Continuous Vulcanizing Machine Operator for Tushar Rosales
[2025-01-02 20:32] LABS: Basophils % 0.5 %; Eosinophils # 0.3 10^3/uL (0.0-0.8); Eosinophils % 3.4 %; Hematocrit 40.4 % (36-47); Lymphocytes % 37.2 %; Mean Corpuscular HGB Conc 33.4 g/dL (30-55); Mean Corpuscular Hemoglobin 29.5 pg (27-33); Mean Corpuscular Volume 88.4 fl (85-98); Mean Platelet Volume 9.3 fL (7.4-10.4); Monocytes # 0.4 10^3/uL (0.2-0.9); Monocytes % 5.4 %; Neutrophils # 4.35 10^3/uL (1.8-7.7); Neutrophils % 53.3 %; Nucleated Red Blood Cells % 0 %; Platelet Count 268 10^3/cmm (157-399); Red Blood Count 4.57 10^6/uL (3.85-5.65); Red Cell Distribution Width 13.4 % (12.1-15.1); White Blood Count 8.17 10^3/uL (3.29-11.43)
[2025-01-02 20:48] LABS: Troponin(5th) Baseline 11 ng/L (0-10)
[2025-01-02 21:08] LABS: Alanine Aminotransferase 31 U/L (0-33); Albumin Level 4.2 g/dL (3.5-5.2); Alkaline Phosphatase 75 U/L (35-105); Anion Gap 15.2 (5-19); Aspartate Amino Transferase 25 U/L (0-32); Blood Urea Nitrogen 10 mg/dL (6-20); Calcium 9.3 mg/dL (8.5-10.5); Carbon Dioxide 26 mmol/L (22-29); Chloride 100 mmol/L (98-107); Globulin 2.5 g/dL (1.3-4.6); Glucose 113 mg/dL (65-115); Lipase 41 U/L (13-60); Osmolality Calculated 284 mOsm/kg (285-295); Potassium 4.2 mmol/L (3.5-5.1); Sodium 137 mmol/L (136-145); Total Bilirubin 0.3 mg/dL (0.15-1.2); Total Protein 6.7 g/dL (6.6-8.7)
--- NOTE | 2025-01-02 22:38 | ECG_ITS ---
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 Measurements Intervals [place] Rate: 79 P: 24 MA: 157 QRS: -19 QRSD: 98 T: 18 QT: 355 QTc: 408 Interpretive Statements SINUS RHYTHM MINIMAL VOLTAGE CRITERIA FOR LVH, CONSIDER NORMAL VARIANT [MEETS CRITERIA IN ONE OF: R(aVL), S(V1), R(V5), R(V5/V6)+S(V1)] ANTEROSEPTAL MYOCARDIAL INFARCTION , OF INDETERMINATE AGE [40+ ms Q WAVE IN V1-V4] Compared to ECG 01/02/2025 20:02:39 No significant changes Electronically Signed On 01-04-2025 22:20:28 HIDE BUYER by Nghia Glynn M.D. [email or web address]
[2025-01-02 22:41] LABS: Troponin 5 2HR 11.23 ng/L (0-10); Troponin 5 2HR Delta 0.23 ABS# (0-10)
[2025-01-03 00:21] VITALS: BP 162/100
[2025-01-03] MEDS: cloNIDine 0.1 mg Tablet PO (00:21)
[2025-01-03 00:25] VITALS: BP 162/100; PULSE 81; O2SAT 96
== END 2025-01-03 00:30 | disposition home or self-care (01) ==
PROVIDERS: Emergency Medicine; Emergency Provider Emergency Medicine; PCP Nurse Practitioner Family
DX: R07.9 Chest pain, unspecified (principal); I10 Essential (primary) hypertension
CPT/HCPCS: 36415; 71045; 80053; 83690; 84484; 85025; 93005; 99285

== ENCOUNTER 2025-01-09 16:30 | Outpatient (CLI) | payer BC, SELFPAY | END 2025-01-09 16:31 | disposition home or self-care (01) | LOC: SLEEP 16:52 | PROVIDERS: PCP Nurse Practitioner Family; Visit Provider Specialist | DX: G47.33 Obstructive sleep apnea (adult) (pediatric) (principal) | CPT/HCPCS: G0399 ==

== ENCOUNTER → 2025-02-14 08:57 | Outpatient (BNVA) | payer BC, SELFPAY | PROVIDERS: PCP Nurse Practitioner Family; Visit Provider Obstetrics & Gynecology | DX: R30.0 Dysuria (principal) | CPT/HCPCS: 81000 ==